=== PATIENT | male | born 1965 | race Caucasian/White ===

== ENCOUNTER 2018-12-03 00:36 | Outpatient (CLI) | payer BC ==
[2018-12-03 09:19] LABS: #Basophils 0.1 thou/uL (0.0-0.2); #Eosinphils 0.2 thou/uL (0.0-0.7); #Lymphocytes 1.6 thou/uL (1.20-3.40); #Monocytes 0.6 thou/uL (0.11-0.59); %Basophils 1.3 % (0.0-1.0); %Eosinophils 4.1 % (0.0-10.0); %Lymphocytes 28.8 % (21.0-51.0); %Monocytes 10.9 % (0.0-10.0); %Neutrophils 54.9 % (42.0-75.0); Hemoglobin 16.7 g/dL (14.0-18.0); Mean Corpuscular HGB CONC 35.1 g/dL (32.0-36.0); Mean Corpuscular Hemoglobin 33.1 pg (27.0-31.0); Mean Corpuscular Volume 94.1 fL (78.0-98.0); Mean Platelet Volume 6.9 fL (7.4-10.4); Platelet Count 203 thou/uL (130-400); RBC Distribution Width 11.3 % (11.5-14.5); Red Blood Cell (RBC) Count 5.06 mill/uL (4.70-6.10); White Blood Cell (WBC) Count 5.5 thou/uL (4.8-10.8)
[2018-12-03 09:42] LABS: Anion Gap 12 mmol/L (10-20); BUN (Urea Nitrogen) 13 mg/dL (8.4-25.7); Calc. Creatinine Clearance 0 mL/min (70-130); Calcium 9.8 mg/dL (7.8-10.44); Carbon Dioxide 27 mmol/L (22-29); Chloride 104 mmol/L (98-107); Estimated GFR-MDRD 82; Glucose 110 mg/dL (70-105); Potassium 4.4 mmol/L (3.5-5.1); Sodium 139 mmol/L (136-145)
== END 2018-12-03 00:37 | disposition home or self-care (01) ==
LOC: LABBT 00:36
PROVIDERS: ATTEND Surgery
DX: Z01.818 Encounter for other preprocedural examination (principal); K42.9 Umbilical hernia without obstruction or gangrene
CPT/HCPCS: 80048; 85025; 93005; 93010

== ENCOUNTER 2018-12-22 05:53 | Day surgery (SDC) | payer BC ==
[2018-12-03 09:22] VITALS: BMI 35.9
[2018-12-22] MEDS ORDERED: Fentanyl 250 MCG/5 ML VIAL ONE (06:32)
[2018-12-22] MEDS ORDERED: Lidocaine 2% PF 5 ML VIAL ONE (06:59)
[2018-12-22] MEDS ORDERED: Bupivacaine HCl 0.5%/Epinephrine 1:200,000/PF 30 ml Vial ONE (06:59)
[2018-12-22] MEDS ORDERED: Fentanyl 100 MCG/2 ML VIAL ONE ×3 (07:20→09:26)
[2018-12-22] MEDS ORDERED: Dexamethasone 20 MG/5 ML VIAL ONE (09:47)
[2018-12-22] MEDS ORDERED: Ketorolac Tromethamine 30 MG/ML VIAL ONE (09:47)
[2018-12-22] MEDS ORDERED: Ondansetron PF 4 MG/2 ML Vial ONE (09:47)
[2018-12-22] MEDS ORDERED: PROPOFOL 200 MG/20 ML VIAL ONE (09:47)
[2018-12-22] MEDS ORDERED: Lidocaine 1% PF 5 ML VIAL ONE (09:47)
[2018-12-22] MEDS ORDERED: HYDROcodone/Acetaminophen 5/325 mg Tablet ONE (11:00)
--- NOTE | 2018-12-22 11:33 | OP ---
DATE OF PROCEDURE: 12/22/2018 PREOPERATIVE DIAGNOSIS: Umbilical hernia. PROCEDURE PERFORMED: Umbilical hernia repair with mesh. INDICATIONS: A 53-year-old male, who has been having some central and left upper quadrant abdominal pain that is intermittent, was found to have an umbilical hernia. FINDINGS: 2 cm defect, 6.4 cm mesh was used. DESCRIPTION OF PROCEDURE: After informed consent was obtained, the patient was taken to the operating room, given general mask anesthesia, placed in the supine position. Abdomen was prepped and draped in usual fashion. Local anesthesia infiltrated subcutaneously and deep. A subumbilical incision was performed. Subcu divided sharply. The hernia sac was dissected from overlying skin sharply, then dissected from surrounding fascia circumferentially and excised. The defect was approximately 2 cm. A 6.4 cm medium Proceed mesh was inserted intra-abdominally. The leads were pulled up. The mesh was spread out smoothly. Then, the leads were sutured to the fascia with interrupted 0 Ethibond suture. Then, the mesh further secured superior and inferior with 0 Ethibond suture. Hemostasis achieved with electrocautery. The umbilical skin was sutured to the fascia with interrupted 3-0 Vicryl sutures to restore umbilical contour. Then, the skin closed with interrupted 4-0 Rapide. Steri-Strips applied. Sterile bandage applied. The patient tolerated the procedure well, transferred to Recovery in good condition. Sponge and needle count verified correct x2. Job ID: [id number]
== END 2018-12-22 11:40 | disposition home or self-care (01) ==
LOC: SDC 05:53
PROVIDERS: ATTEND Surgery
PROC: 0WUF0JZ Supplement Abdominal Wall with Synthetic Substitute, Open Approach (ICD-10-PCS; principal; 2018-12-22)
DX: K42.9 Umbilical hernia without obstruction or gangrene (principal); M19.049 Primary osteoarthritis, unspecified hand; Z87.891 Personal history of nicotine dependence; Z79.82 Long term (current) use of aspirin; Z79.899 Other long term (current) drug therapy
CPT/HCPCS: C1781; J0131; J0670; J1100; J1885; J2001; J2405; J2704; J3010